=== PATIENT | female | born 1950 | race Asian ===

== ENCOUNTER 2017-02-18 21:53 | Emergency (ER) | payer OTHER ==
[~2017-02-18] VITALS: Ht 170.2 cm; Wt 100.7 kg
[~2017-02-18 21:53] MED LIST: BENICAR HCT1 TA2 PO; CEPH500C20 PO; CETIRIZINE10 MG PO; CLARITIN10 M1 PO; CLONIDINE0.1 MG PO; FLUT0.05 NAS; FURO40TA93 PO; GABA300C2 PO; GLIP10TA55 PO; HYDR200T3 PO; LANTUS SOLOSTAR SC; LANTUS100 MG/ML SC; METO50TA27 PO; OMEP20CA PO; PREDNISONE10 M1 PO; PREDNISONE5 MG PO; RANI150T78 PO; TERAZOSIN10 MG PO
[2017-02-18 22:38] VITALS: BP 173/80; TEMP 98.7
== END 2017-02-18 22:40 | disposition home or self-care (01) ==
LOC: ED 21:53
DX: L50.8 Other urticaria (principal)
CPT/HCPCS: 96372; 99282; J1100

== ENCOUNTER 2017-04-12 09:05 | Outpatient (CLI) | payer OTHER | END 2017-04-12 19:15 | disposition home or self-care (01) | LOC: RAD 09:05 | DX: M81.0 Age-related osteoporosis without current pathological fracture (principal) ==

== ENCOUNTER 2017-07-03 13:05 | Observation (INO) | payer OTHER ==
[~2017-07-03] VITALS: Ht 170.2 cm; Wt 105.8 kg
[2017-07-03 14:18] VITALS: BP 161/77; TEMP 99.1; Ht 170.2 cm; Wt 105.8 kg
[2017-07-03 16:00] VITALS: BP 161/77; TEMP 98.8
[2017-07-03 17:16] LABS: PLATELET COUNT 280 K/uL (152-353)
[2017-07-03 17:40] LABS: POTASSIUM 3.1 mmol/L (3.6-5.2)
[2017-07-03 19:31] VITALS: BP 158/74; TEMP 100.2
[2017-07-04] VITALS: BP 144/71; TEMP 99.2
[2017-07-04 04:00] VITALS: BP 152/79; TEMP 98.9
[2017-07-04 05:49] LABS: POTASSIUM 3.2 mmol/L (3.6-5.2); SODIUM 140 mmol/L (136-145)
[2017-07-04 06:05] LABS: PLATELET COUNT 267 K/uL (152-353)
[2017-07-04 08:00] VITALS: BP 147/81; TEMP 98.3
[2017-07-04 12:00] VITALS: BP 143/78; TEMP 98
[2017-07-04 16:00] VITALS: BP 148/72; TEMP 97.8
[2017-07-04 20:00] VITALS: BP 131/80; TEMP 98.9
[2017-07-05] VITALS: BP 140/73; TEMP 99
[2017-07-05 04:00] VITALS: BP 145/80; TEMP 98.8
[2017-07-05 07:01] LABS: PLATELET COUNT 268 K/uL (152-353)
[2017-07-05 07:17] LABS: POTASSIUM 3.2 mmol/L (3.6-5.2); SODIUM 140 mmol/L (136-145)
[2017-07-05 07:58] VITALS: BP 149/79; TEMP 98.7
[2017-07-05 11:54] VITALS: BP 144/77; TEMP 98.3
[2017-07-05 16:00] VITALS: BP 158/81; TEMP 98.7
== END 2017-07-05 19:07 | disposition home or self-care (01) ==
LOC: MED/SURG 13:05
PROVIDERS: ADMIT Family Medicine
DX: J18.8 Other pneumonia, unspecified organism (principal); N39.0 Urinary tract infection, site not specified; E86.0 Dehydration; E11.9 Type 2 diabetes mellitus without complications
CPT/HCPCS: 36415; 74022; 80053; 81000; 82948; 83735; 85027; 87040; 87088; 94640; 94664; 94668; 94760; 96360; 96361; 96367; 96372; 96374; 99220; G0378; G0379; J1642

== ENCOUNTER 2017-07-09 09:52 | Outpatient (CLI) | payer OTHER | END 2017-07-09 11:00 | disposition home or self-care (01) | LOC: MAMMO 09:52 | DX: Z12.31 Encounter for screening mammogram for malignant neoplasm of breast (principal) ==

== ENCOUNTER 2017-09-28 12:34 | Emergency (ER) | payer OTHER ==
[~2017-09-28] VITALS: Ht 170.2 cm; Wt 99.8 kg
[2017-09-28 14:43] VITALS: BP 185/88; TEMP 98.4
== END 2017-09-28 14:47 | disposition home or self-care (01) ==
LOC: ED 12:34
DX: B02.9 Zoster without complications (principal)
CPT/HCPCS: 99281

== ENCOUNTER 2018-01-31 12:14 | Outpatient (CLI) | payer OTHER | END 2018-01-31 22:05 | disposition home or self-care (01) | LOC: RAD 12:14 | DX: R05 Cough (principal) ==

== ENCOUNTER → 2018-04-03 15:59 | Outpatient (CLI) | payer OTHER | END | disposition home or self-care (01) | LOC: AMB 15:59 | DX: Z04.1 Encounter for examination and observation following transport accident (principal) ==

== ENCOUNTER 2018-08-27 12:38 | Outpatient (CLI) | payer OTHER | END 2018-08-27 21:30 | disposition home or self-care (01) | LOC: RAD 12:38 | DX: M25.511 Pain in right shoulder (principal) ==

== ENCOUNTER 2019-04-25 09:23 | Outpatient (CLI) | payer OTHER | END 2019-04-25 21:40 | disposition home or self-care (01) | LOC: MAMMO 09:23 | DX: Z12.31 Encounter for screening mammogram for malignant neoplasm of breast (principal); Z79.52 Long term (current) use of systemic steroids ==

== ENCOUNTER 2019-06-01 23:45 | Emergency (ER) | payer OTHER ==
[~2019-06-01] VITALS: Ht 170.2 cm; Wt 93.4 kg
[2019-06-01 23:45] VITALS: TEMP 97.7
[2019-06-02 00:29] LABS: POTASSIUM 4.2 mmol/L (3.6-5.2); SODIUM 139 mmol/L (136-145)
[2019-06-02 00:44] LABS: PLATELET COUNT 306 K/uL (152-353)
[2019-06-02 02:00] LABS: PARTIAL THROMBOPLASTIN TIME 26.4 SECONDS (24.5-33.6)
[2019-06-02 02:14] VITALS: BP 162/94
== END 2019-06-02 02:15 | disposition short-term general hospital (02) ==
LOC: ED 23:45
PROVIDERS: Hospitalist
DX: R07.89 Other chest pain (principal); R06.02 Shortness of breath
CPT/HCPCS: 36415; 80053; 82550; 83880; 84484; 85027; 85379; 85610; 85730; 93005; 96372; 99284; J1650; J1815

== ENCOUNTER 2019-06-02 02:17 | Outpatient (CLI) | payer OTHER | END 2019-06-02 02:47 | disposition short-term general hospital (02) | LOC: AMB 02:17 | DX: R79.1 Abnormal coagulation profile (principal); R07.89 Other chest pain | CPT/HCPCS: A0425; A0429 ==

== ENCOUNTER 2019-08-05 15:52 | Outpatient (CLI) | payer OTHER | END 2019-08-05 19:37 | disposition home or self-care (01) | LOC: RAD 15:52 | DX: R05 Cough (principal) ==

== ENCOUNTER 2019-11-11 11:11 | Outpatient (CLI) | payer OTHER | END 2019-11-11 22:00 | disposition home or self-care (01) | LOC: RAD 11:11 | DX: R05 Cough (principal) ==

== ENCOUNTER 2019-12-10 11:56 | Outpatient (CLI) | payer OTHER | END 2019-12-10 19:22 | disposition home or self-care (01) | LOC: RAD 11:56 | DX: R10.84 Generalized abdominal pain (principal) ==

== ENCOUNTER 2020-03-10 08:00 | Outpatient (CLI) | payer OTHER | END 2020-03-10 21:44 | disposition home or self-care (01) | LOC: EMG 08:00 | DX: G56.03 Carpal tunnel syndrome, bilateral upper limbs (principal) ==

== ENCOUNTER 2020-04-13 16:35 | Observation (INO) | payer OTHER ==
[~2020-04-13] VITALS: Ht 170.2 cm; Wt 92.8 kg
[2020-04-13 19:12] LABS: PLATELET COUNT 298 K/uL (152-353)
[2020-04-13 19:59] LABS: POTASSIUM 3.6 mmol/L (3.6-5.2); SODIUM 143 mmol/L (136-145)
[2020-04-13 20:00] VITALS: BP 136/76; TEMP 98.6
[2020-04-13 20:04] LABS: PARTIAL THROMBOPLASTIN TIME 23.8 SECONDS (24.5-33.6)
[2020-04-13 20:58] VITALS: BP 139/64; TEMP 98.6; Ht 170.2 cm; Wt 92.8 kg
[2020-04-14] VITALS: BP 154/77; TEMP 98.6
[2020-04-14] MEDS ORDERED: GLIP10TA55 PO (02:55)
[2020-04-14] MEDS ORDERED: NEURONTIN 100M100 MG PO (02:56)
[2020-04-14] MEDS ORDERED: HYDR25TA60 PO (02:57)
[2020-04-14] MEDS ORDERED: SIMV10TA PO (02:59)
[2020-04-14] MEDS ORDERED: LOSA50TA PO (03:01)
[2020-04-14] MEDS ORDERED: OMEPRAZOLE DR40 MG PO (03:03)
[2020-04-14] MEDS ORDERED: LEVOCETIRIZINE D5 MG PO (03:04)
[2020-04-14] MEDS ORDERED: INSUINJP SC ×2 (03:06→03:07)
[2020-04-14] MEDS ORDERED: OZEMPIC2 MG/1.5 M SC (03:10)
[2020-04-14 04:00] VITALS: BP 142/76; TEMP 98.2
[2020-04-14 10:16] LABS: PLATELET COUNT 288 K/uL (152-353)
[2020-04-14 10:28] LABS: POTASSIUM 3.8 mmol/L (3.6-5.2)
== END 2020-04-14 15:45 | disposition home or self-care (01) ==
LOC: MED/SURG 16:35
PROVIDERS: ADMIT Family Medicine
DX: R07.89 Other chest pain (principal)
CPT/HCPCS: 36415; 80053; 82550; 83735; 84484; 85027; 85610; 85730; 87635; 93005; 99220; G0378; G0379; J1642; J1650; U00003

== ENCOUNTER 2020-09-09 15:58 | Inpatient (IN) | payer OTHER ==
[~2020-09-09] VITALS: Ht 170.2 cm; Wt 103.6 kg
[~2020-09-09 15:58] MED LIST changes: +HYDR25TA60 PO; +INSUINJP SC; +LEVOCETIRIZINE D5 MG PO; +LOSA50TA PO; +NEURONTIN 100M100 MG PO; +OMEPRAZOLE DR40 MG PO; +OZEMPIC2 MG/1.5 M SC; +SIMV10TA PO
[2020-09-09 17:06] LABS: PLATELET COUNT 210 K/uL (152-353)
[2020-09-09 17:19] VITALS: BP 169/80; TEMP 98.1; Ht 170.2 cm; Wt 103.6 kg
[2020-09-09 17:40] LABS: POTASSIUM 3.2 mmol/L (3.6-5.2)
[2020-09-09 20:00] VITALS: BP 171/81; TEMP 103.2
[2020-09-10] VITALS (7 sets, daily range): BP systolic 152–179; BP diastolic 73–95; TEMP 98.5–99.7
[2020-09-10 10:00] LABS: PLATELET COUNT 210 K/uL (152-353)
[2020-09-10 10:13] LABS: POTASSIUM 4.3 mmol/L (3.6-5.2)
[2020-09-11 04:00] VITALS: BP 167/69; TEMP 98.5
[2020-09-11 07:15] LABS: PLATELET COUNT 204 K/uL (152-353)
[2020-09-11 08:00] VITALS: BP 176/83; TEMP 98.5
[2020-09-11 12:00] VITALS: BP 127/85; TEMP 98.7
[2020-09-11 16:00] VITALS: BP 164/76; TEMP 99.1
[2020-09-11 20:00] VITALS: BP 176/77; TEMP 99.5
[2020-09-12] VITALS: BP 139/58; TEMP 98.6
[2020-09-12 04:00] VITALS: BP 172/82; TEMP 99.1
[2020-09-12 06:06] LABS: PLATELET COUNT 209 K/uL (152-353)
[2020-09-12 06:30] LABS: POTASSIUM 3.7 mmol/L (3.6-5.2)
[2020-09-12 08:00] VITALS: BP 158/70; TEMP 99.7
[2020-09-12 11:38] VITALS: BP 145/64; TEMP 98.7
[2020-09-12 16:00] VITALS: BP 167/82; TEMP 98.9
== END 2020-09-12 17:05 | disposition home or self-care (01) | DRG 177 ==
LOC: MED/SURG 15:58
PROVIDERS: ADMIT Family Medicine; ATTEND Family Medicine
DX: U07.1 COVID-19 (principal); J18.8 Other pneumonia, unspecified organism; I10 Essential (primary) hypertension; E11.9 Type 2 diabetes mellitus without complications; E66.01 Morbid (severe) obesity due to excess calories; B36.8 Other specified superficial mycoses; Z68.33 Body mass index [BMI] 33.0-33.9, adult; M1A.9XX0 Chronic gout, unspecified, without tophus (tophi); F32.89 Other specified depressive episodes
CPT/HCPCS: 36415; 80053; 81000; 82550; 82728; 82948; 83735; 84100; 84484; 85027; 85379; 85652; 86140; 87040; 87635; 94667; 94668; 94760; 96361; 96365; 96366; 96372; 96374; 96375; J1650; J1815; J2930; U0003

== ENCOUNTER 2020-09-16 12:13 | Inpatient (IN) | payer OTHER ==
[2020-09-16] VITALS (14 sets, daily range): BP systolic 139–183; BP diastolic 61–87; TEMP 99.3–101.1
[~2020-09-16] VITALS: Ht 170.2 cm; Wt 118.4 kg
[2020-09-16 13:07] LABS: PLATELET COUNT 291 K/uL (152-353)
[2020-09-16 13:18] LABS: POTASSIUM 3.4 mmol/L (3.6-5.2)
[2020-09-17] VITALS (15 sets, daily range): BP systolic 146–207; BP diastolic 50–99; TEMP 98.8–100; Ht 170.2 cm; Wt 118.4 kg
[2020-09-17 05:47] LABS: PLATELET COUNT 346 K/uL (152-353)
[2020-09-17 05:59] LABS: POTASSIUM 3.8 mmol/L (3.6-5.2)
[2020-09-18] VITALS (81 sets, daily range): BP systolic 105–197; BP diastolic 50–109; TEMP 98.2–100.6
[2020-09-18 05:18] LABS: POTASSIUM 4.1 mmol/L (3.6-5.2)
[2020-09-18 05:43] LABS: PLATELET COUNT 289 K/uL (152-353)
[2020-09-19] VITALS (99 sets, daily range): BP systolic 12–212; BP diastolic 55–90; TEMP 98.2–99.5
[2020-09-19 06:45] LABS: PLATELET COUNT 384 K/uL (152-353)
[2020-09-19 07:03] LABS: POTASSIUM 3.6 mmol/L (3.6-5.2)
[2020-09-20] VITALS (75 sets, daily range): BP systolic 128–210; BP diastolic 9–119; TEMP 96.9–98.8
[2020-09-20 06:18] LABS: PLATELET COUNT 436 K/uL (152-353)
[2020-09-20 06:24] LABS: POTASSIUM 3.7 mmol/L (3.6-5.2)
[2020-09-21] VITALS (44 sets, daily range): BP systolic 173–225; BP diastolic 78–115; TEMP 98.1–99.2
[2020-09-21 06:49] LABS: POTASSIUM 3.7 mmol/L (3.6-5.2)
[2020-09-21 06:55] LABS: PLATELET COUNT 373 K/uL (152-353)
[2020-09-22] VITALS (40 sets, daily range): BP systolic 164–228; BP diastolic 81–113; TEMP 97.2–99.2
[2020-09-22 05:52] LABS: PLATELET COUNT 431 K/uL (152-353)
[2020-09-22 06:04] LABS: POTASSIUM 3.5 mmol/L (3.6-5.2)
[2020-09-23] VITALS (38 sets, daily range): BP systolic 133–233; BP diastolic 63–115; TEMP 98–99.3
[2020-09-23 05:55] LABS: PLATELET COUNT 337 K/uL (152-353)
[2020-09-23 06:35] LABS: POTASSIUM 8.1 mmol/L (3.6-5.2)
[2020-09-23 12:31] LABS: POTASSIUM 3.9 mmol/L (3.6-5.2)
[2020-09-24] VITALS (33 sets, daily range): BP systolic 103–184; BP diastolic 54–94; TEMP 97.1–98.9
[2020-09-24 06:15] LABS: PLATELET COUNT 409 K/uL (152-353)
[2020-09-24 06:25] LABS: POTASSIUM 4.2 mmol/L (3.6-5.2)
[2020-09-25] VITALS (24 sets, daily range): BP systolic 112–145; BP diastolic 59–80; TEMP 97.2–98.9
[2020-09-25 06:25] LABS: PLATELET COUNT 355 K/uL (152-353)
[2020-09-25 06:37] LABS: POTASSIUM 4.2 mmol/L (3.6-5.2)
[2020-09-26] VITALS (22 sets, daily range): BP systolic 121–161; BP diastolic 61–96; TEMP 97.1–98.8
[2020-09-26 06:22] LABS: PLATELET COUNT 376 K/uL (152-353)
[2020-09-26 06:37] LABS: POTASSIUM 3.6 mmol/L (3.6-5.2)
[2020-09-27] VITALS (29 sets, daily range): BP systolic 112–164; BP diastolic 60–85; TEMP 97.5–98.2
[2020-09-27 06:36] LABS: PLATELET COUNT 314 K/uL (152-353)
[2020-09-27 07:09] LABS: POTASSIUM 3.9 mmol/L (3.6-5.2)
[2020-09-28] VITALS (69 sets, daily range): BP systolic 14–1466; BP diastolic 66–85; TEMP 97.6–98.2
[2020-09-28 06:03] LABS: PLATELET COUNT 321 K/uL (152-353)
[2020-09-29] VITALS (45 sets, daily range): BP systolic 122–181; BP diastolic 64–99; TEMP 96.2–98.1
[2020-09-29 06:04] LABS: PLATELET COUNT 313 K/uL (152-353)
[2020-09-29 07:05] LABS: POTASSIUM 4.4 mmol/L (3.6-5.2)
[2020-09-30] VITALS (98 sets, daily range): BP systolic 10–192; BP diastolic 16–99; TEMP 96.8–99.4
[2020-09-30 04:58] LABS: POTASSIUM 4.5 mmol/L (3.6-5.2)
[2020-09-30 05:38] LABS: PLATELET COUNT 209 K/uL (152-353)
[2020-10-01] VITALS (41 sets, daily range): BP systolic 141–1618; BP diastolic 74–96; TEMP 97.8–99.6
[2020-10-01 05:11] LABS: POTASSIUM 4.6 mmol/L (3.6-5.2)
[2020-10-01 05:13] LABS: PLATELET COUNT 155 K/uL (152-353)
[2020-10-02] VITALS (37 sets, daily range): BP systolic 117–191; BP diastolic 69–98; TEMP 96.7–97.7
[2020-10-02 05:53] LABS: PLATELET COUNT 137 K/uL (152-353)
[2020-10-02 07:27] LABS: POTASSIUM 3.8 mmol/L (3.6-5.2)
[2020-10-02 14:51] LABS: PLATELET COUNT 141 K/uL (152-353)
[2020-10-03] VITALS: TEMP 97.6
[2020-10-03 04:00] VITALS: TEMP 98.4
[2020-10-03 07:00] VITALS: TEMP 98.6
[2020-10-03 07:11] LABS: PLATELET COUNT 148 K/uL (152-353)
[2020-10-03 07:31] LABS: POTASSIUM 3.6 mmol/L (3.6-5.2)
[2020-10-03 08:00] VITALS: TEMP 98.6
[2020-10-03 12:41] VITALS: TEMP 98.7
[2020-10-03 20:00] VITALS: BP 142/66; TEMP 98.1
[2020-10-04] VITALS (25 sets, daily range): BP systolic 108–184; BP diastolic 56–81; TEMP 95.9–98.8
[2020-10-04 07:13] LABS: POTASSIUM 3.3 mmol/L (3.6-5.2)
[2020-10-04 07:34] LABS: PLATELET COUNT 120 K/uL (152-353)
[2020-10-04 19:38] LABS: POTASSIUM 4.1 mmol/L (3.6-5.2)
[2020-10-05] VITALS (53 sets, daily range): BP systolic 108–179; BP diastolic 52–67; TEMP 94.4–98.9
[2020-10-05 08:49] LABS: PLATELET COUNT 122 K/uL (152-353)
[2020-10-05 09:55] LABS: POTASSIUM 3.2 mmol/L (3.6-5.2)
[2020-10-06] VITALS (19 sets, daily range): BP systolic 96–155; BP diastolic 51–86; TEMP 96.6–99.1
[2020-10-06 07:48] LABS: PLATELET COUNT 102 K/uL (152-353)
[2020-10-06 08:11] LABS: POTASSIUM 3.8 mmol/L (3.6-5.2)
[2020-10-06 16:07] LABS: PLATELET COUNT 174 K/uL (152-353)
[2020-10-07] VITALS (18 sets, daily range): BP systolic 119–168; BP diastolic 56–83; TEMP 97.8–98.8
[2020-10-07 05:26] LABS: PLATELET COUNT 119 K/uL (152-353)
[2020-10-07 05:57] LABS: POTASSIUM 4.5 mmol/L (3.6-5.2)
[2020-10-08] VITALS (13 sets, daily range): BP systolic 107–140; BP diastolic 51–75; TEMP 97.2–99.8
[2020-10-08 05:54] LABS: PLATELET COUNT 119 K/uL (152-353)
[2020-10-08 06:08] LABS: POTASSIUM 5.4 mmol/L (3.6-5.2)
[2020-10-08 16:25] LABS: PLATELET COUNT 120 K/uL (152-353)
[2020-10-08 16:42] LABS: POTASSIUM 5.2 mmol/L (3.6-5.2)
[2020-10-09] VITALS: TEMP 98.8
[2020-10-09 00:30] VITALS: BP 142/60
[2020-10-09 02:45] VITALS: TEMP 98.4
[2020-10-09 03:15] VITALS: BP 51/30
[2020-10-09 03:29] VITALS: TEMP 98.6
== END 2020-10-09 03:29 | disposition expired | DRG 4 ==
LOC: ED 12:13 → MED/SURG 16:50 → ICU 16:50
PROVIDERS: Internal Medicine; Internal Medicine Endocrinology, Diabetes & Metabolism; ADMIT Family Medicine; ATTEND Family Medicine
PROC: 30233K1 Transfusion of Nonautologous Frozen Plasma into Peripheral Vein, Percutaneous Approach (ICD-10-PCS; 2020-09-17)
PROC: 5A1955Z Respiratory Ventilation, Greater than 96 Consecutive Hours (ICD-10-PCS; principal; 2020-09-18)
PROC: 0BH17EZ Insertion of Endotracheal Airway into Trachea, Via Natural or Artificial Opening (ICD-10-PCS; 2020-09-18)
PROC: 02HV33Z Insertion of Infusion Device into Superior Vena Cava, Percutaneous Approach (ICD-10-PCS; 2020-09-20)
PROC: B548ZZA Ultrasonography of Superior Vena Cava, Guidance (ICD-10-PCS; 2020-09-20)
PROC: 30233N1 Transfusion of Nonautologous Red Blood Cells into Peripheral Vein, Percutaneous Approach (ICD-10-PCS; 2020-09-20)
PROC: 5A1955Z Respiratory Ventilation, Greater than 96 Consecutive Hours (ICD-10-PCS; 2020-09-23)
PROC: 30233K1 Transfusion of Nonautologous Frozen Plasma into Peripheral Vein, Percutaneous Approach (ICD-10-PCS; 2020-09-24)
PROC: 0B110F4 Bypass Trachea to Cutaneous with Tracheostomy Device, Open Approach (ICD-10-PCS; 2020-09-29)
PROC: 30233N1 Transfusion of Nonautologous Red Blood Cells into Peripheral Vein, Percutaneous Approach (ICD-10-PCS; 2020-09-30)
PROC: 30233N1 Transfusion of Nonautologous Red Blood Cells into Peripheral Vein, Percutaneous Approach (ICD-10-PCS; 2020-10-08)
DX: U07.1 COVID-19 (principal); J96.01 Acute respiratory failure with hypoxia; J18.8 Other pneumonia, unspecified organism; I21.4 Non-ST elevation (NSTEMI) myocardial infarction; E43 Unspecified severe protein-calorie malnutrition; B37.89 Other sites of candidiasis; D62 Acute posthemorrhagic anemia; J93.83 Other pneumothorax; R04.89 Hemorrhage from other sites in respiratory passages; I10 Essential (primary) hypertension; E11.65 Type 2 diabetes mellitus with hyperglycemia; D63.8 Anemia in other chronic diseases classified elsewhere; R39.2 Extrarenal uremia; K21.9 Gastro-esophageal reflux disease without esophagitis; E88.09 Other disorders of plasma-protein metabolism, not elsewhere classified; T68.XXXA Hypothermia, initial encounter
CPT/HCPCS: 31500; 36415; 36416; 36571; 36591; 36600; 36620; 80048; 80053; 80061; 80202; 82306; 82550; 82553; 82728; 82805; 82947; 83605; 83735; 83880; 84100; 84132; 84478; 84484; 85002; 85007; 85014; 85018; 85027; 85379; 85610; 85730; 86140; 86141; 86850; 86900; 86901; 86922; 87040; 87077; 87185; 87186; 87205; 87635; 93005; 94002; 94003; 94640; 94660; 94664; 94667; 94668; 94760; 96372; 96374; 99284; C1751; J0132; J0330; J0456; J0696; J1100; J1200; J1265; J1450; J1642; J1650; J1815; J1885; J1940; J1956; J2060; J2250; J2270; J2704; J2930; J3010; J3020; J3370; J3475; J3480; J3490; J7060; P9016; P9017; P9047; U0003